=== PATIENT | male | born 1960 | race African-American/Black ===

== ENCOUNTER 2018-12-21 12:47 | Emergency (ER) | payer SELFPAY ==
[~2018-12-21] VITALS: Ht 177.8 cm; Wt 91.0 kg
[2018-12-21] MEDS ORDERED: AMLO5TAB4 PO (13:39)
[2018-12-21] MEDS ORDERED: KETOROLAC 60MG/2ML VIAL IM ONE (16:15)
[2018-12-21 17:30] VITALS: BP 140/85
== END 2018-12-21 17:30 | disposition home or self-care (01) ==
LOC: ER 12:47
DX: M25.462 Effusion, left knee (principal)
CPT/HCPCS: 73562; 96372; 99283; J1885